=== PATIENT | male | born 1960 | race Caucasian/White ===

== ENCOUNTER → 2017-04-16 | Outpatient (REF) ==
--- NOTE | 2017-04-17 02:13 | REP ---
Clinical: Pain and disability. Technique: AP, lateral, bilateral oblique, and sunrise views of the right knee. Impression: Advanced tricompartmental osteoarthritic degenerative changes are appreciated. Findings include diffuse osteophytosis, subchondral sclerosis, joint space narrowing, and chondrocalcinosis. Stout view also demonstrates fraying along the anterior margin of the patella. No acute fracture dislocation. No effusion. Impression: Advanced tricompartmental osteoarthritic degenerative changes. Signed by Bennett Finnegan MD 04/17/2017 02:04 A
== END ==
LOC: M SMT 11:22
PROVIDERS: ATTEND Internal Medicine
DX: M54.5 Low back pain (principal)